=== PATIENT | male | born 1950 | race Caucasian/White ===

== ENCOUNTER → 2016-07-01 | Outpatient (CLI) | payer OTHER ==
[~2016-07-01] MED LIST: AMLODIPINE BESY10 MG PO; ASPIRIN EC81 M1 PO; CALCITRIOL0.25 MCG PO; CARDURA2 MG PO; CHLORTHALIDONE25 MG PO; CIPRO PO; CYANOCOBALAM1000 MCG PO; DIOVAN HCT 320/1 TAB PO; FENOFIBRATE145 MG PO; FENOFIBRATE160 MG PO; FUROSEMIDE80 MG PO; HYDRALAZINE HC100 MG PO; HYDRALAZINE HCL25 MG PO; HYDRALAZINE HCL50 MG PO; ISORDIL PO; K-DUR20 ME1 PO; K-DUR20 ME2 PO; LANTUS100 U/ML SUBQ; LASIX20 MG PO; LIPITOR40 MG PO; LISINOPRIL10 MG PO; LOPRESSOR100 MG PO; LOW DOSE ASPIRI81 M2 PO; METOPROLOL TAR100 MG PO; NITROSTAT0.4 MG SL; NOVOLOG100 UNITS/ SUBQ; PROTONIX PO; TOPROL XL100 MG PO; ZYLOPRIM100 MG PO
[2016-07-01 10:34] LABS: BUN/CREATININE RATIO 26.17; CALCIUM SERUM 9.3 mg/dL (8.4-10.2); CREATININE SERUM 3.4 mg/dL (0.6-1.4); GLOM FILT RATE Estimated 19.5 mL/min (>60); POTASSIUM 4.5 mmol/L (3.5-5.1)
== END | disposition home or self-care (01) ==
LOC: CLAB 09:20
PROVIDERS: Internal Medicine Nephrology
DX: N18.4 Chronic kidney disease, stage 4 (severe) (principal)
CPT/HCPCS: 36415; 80048

== ENCOUNTER → 2016-08-22 | Outpatient (CLI) | payer OTHER ==
[2016-08-22 09:58] LABS: ALBUMIN SERUM 3.9 g/dL (3.5-5.0); BILIRUBIN,TOTAL 0.5 mg/dL (0.2-2.0); BUN/CREATININE RATIO 21.76; CALCIUM SERUM 9.3 mg/dL (8.4-10.2); CREATININE SERUM 3.4 mg/dL (0.6-1.4); POTASSIUM 4.6 mmol/L (3.5-5.1); PROTEIN TOTAL SERUM 6.5 g/dL (6.0-8.3)
== END | disposition home or self-care (01) ==
LOC: CLAB 08:46
PROVIDERS: Internal Medicine Nephrology
DX: N18.4 Chronic kidney disease, stage 4 (severe) (principal)
CPT/HCPCS: 36415; 80053

== ENCOUNTER → 2016-12-15 | Outpatient (CLI) | payer OTHER ==
[2016-12-15 10:34] LABS: ALBUMIN SERUM 3.5 g/dL (3.5-5.0); BILIRUBIN,TOTAL 0.4 mg/dL (0.2-2.0); BUN/CREATININE RATIO 17.09; CALCIUM SERUM 8.9 mg/dL (8.4-10.2); CREATININE SERUM 3.1 mg/dL (0.6-1.4); GLOM FILT RATE Estimated 20.2 mL/min (>60); PROTEIN TOTAL SERUM 6.5 g/dL (6.0-8.3); URIC ACID 9.2 mg/dL (2.6-7.2)
== END | disposition home or self-care (01) ==
LOC: CLAB 09:17
PROVIDERS: Internal Medicine Nephrology
DX: N18.4 Chronic kidney disease, stage 4 (severe) (principal); E79.0 Hyperuricemia without signs of inflammatory arthritis and tophaceous disease
CPT/HCPCS: 36415; 80053; 84550

== ENCOUNTER → 2017-01-12 | Outpatient (CLI) | payer OTHER ==
[2017-01-12 10:59] LABS: BUN/CREATININE RATIO 20.88; CALCIUM SERUM 9.2 mg/dL (8.4-10.2); CREATININE SERUM 3.4 mg/dL (0.6-1.4); POTASSIUM 3.6 mmol/L (3.5-5.1)
== END | disposition home or self-care (01) ==
LOC: CLAB 09:06
PROVIDERS: Internal Medicine Nephrology
DX: R60.9 Edema, unspecified (principal)
CPT/HCPCS: 36415; 80048